=== PATIENT | female | born 1965 | race African-American/Black ===

== ENCOUNTER 2020-12-21 12:04 | Inpatient (IN) ==
[2020-12-21] MEDS ORDERED: *HR* LORazepam 1 MG TABLET PO ONE (13:27)
[2020-12-21] MEDS ORDERED: *HR* LORazepam 2 MG/ML VIAL IM PRN (14:49)
[2020-12-21] MEDS ORDERED: MOM Conc 10 ML UD.LIQ PO PRN (14:49)
[2020-12-21] MEDS ORDERED: Mag Hydrox/Al Hydrox/Simeth 30 ML UDC PO PRN (14:49)
[2020-12-21] MEDS ORDERED: traZODone 50 MG TABLET PO PRN (14:49)
[2020-12-21] MEDS ORDERED: *HR* LORazepam 1 MG TABLET PO PRN (14:49)
[2020-12-21] MEDS ORDERED: Haloperidol Lactate 5 MG/ML VIAL IM PRN (14:49)
[2020-12-21] MEDS ORDERED: Albuterol 2.5 MG/3 ML NEBULIZER IH PRN (14:53)
[2020-12-21] MEDS: haloperidoL 5 MG TABLET PO PRN (15:24)
[2020-12-21] MEDS: cloNIDine HCL 0.1 MG TABLET PO SCH (20:46)
[2020-12-21] MEDS: hydrOXYzine pamoate 25 MG CAPSULE PO PRN (20:46)
[2020-12-22] MEDS: hydrOXYzine pamoate 25 MG CAPSULE PO PRN (03:34)
[2020-12-22] MEDS ORDERED: *HR* LORazepam 1 MG TABLET PO ONE (04:42)
[2020-12-22] MEDS: Loratadine 10 MG TABLET PO SCH (09:00)
[2020-12-22] MEDS: hydroCHLOROthiazide 25 MG TABLET PO SCH (09:01)
[2020-12-22] MEDS: Famotidine 20 MG TABLET PO SCH (09:04)
[2020-12-22] MEDS: Fluticasone Propionate Nasal 50 MCG/SPRAY BOTTLE NS SCH (11:15)
[2020-12-22] MEDS: Tiotropium 10 INH DOSE IH SCH (15:09)
[2020-12-22] MEDS: Budesonide/Formoterol 80/4.5 1 PUFF INH IH SCH ×2 (15:14→21:14)
[2020-12-22] MEDS: haloperidoL 5 MG TABLET PO PRN (18:56)
[2020-12-22] MEDS: cloNIDine HCL 0.1 MG TABLET PO SCH (20:30)
[2020-12-22] MEDS: risperiDONE 0.25 MG TABLET PO SCH (20:31)
[2020-12-23] MEDS: Fluticasone Propionate Nasal 50 MCG/SPRAY BOTTLE NS SCH (08:53)
[2020-12-23] MEDS: hydroCHLOROthiazide 25 MG TABLET PO SCH (08:54)
[2020-12-23] MEDS: risperiDONE 0.25 MG TABLET PO SCH (08:55)
[2020-12-23] MEDS: Famotidine 20 MG TABLET PO SCH (08:57)
[2020-12-23] MEDS: Loratadine 10 MG TABLET PO SCH (08:58)
[2020-12-23] MEDS: Tiotropium 10 INH DOSE IH SCH (09:00)
[2020-12-23] MEDS: Budesonide/Formoterol 80/4.5 1 PUFF INH IH SCH ×2 (09:01→22:15)
[2020-12-23] MEDS: risperiDONE 1 MG TABLET PO SCH ×2 (09:04→20:52)
[2020-12-23] MEDS: cloNIDine HCL 0.1 MG TABLET PO SCH (20:51)
[2020-12-24] MEDS: hydroCHLOROthiazide 25 MG TABLET PO SCH (08:52)
[2020-12-24] MEDS: Loratadine 10 MG TABLET PO SCH (08:52)
[2020-12-24] MEDS: Famotidine 20 MG TABLET PO SCH (08:52)
[2020-12-24] MEDS: risperiDONE 1 MG TABLET PO SCH ×2 (08:52→20:38)
[2020-12-24] MEDS: Fluticasone Propionate Nasal 50 MCG/SPRAY BOTTLE NS SCH (08:53)
[2020-12-24] MEDS: Tiotropium 10 INH DOSE IH SCH (08:54)
[2020-12-24] MEDS: Budesonide/Formoterol 80/4.5 1 PUFF INH IH SCH ×2 (08:55→20:38)
[2020-12-24] MEDS: cloNIDine HCL 0.1 MG TABLET PO SCH (20:38)
[2020-12-25] MEDS: hydroCHLOROthiazide 25 MG TABLET PO SCH (08:22)
[2020-12-25] MEDS: Famotidine 20 MG TABLET PO SCH (08:22)
[2020-12-25] MEDS: Loratadine 10 MG TABLET PO SCH (08:23)
[2020-12-25] MEDS: risperiDONE 1 MG TABLET PO SCH (08:23)
[2020-12-25] MEDS: Fluticasone Propionate Nasal 50 MCG/SPRAY BOTTLE NS SCH (08:25)
[2020-12-25] MEDS ORDERED: Ergocalciferol (VIT D2) 50,000 UNIT (1.25MG) CAP PO SCH (09:00)
[2020-12-25 09:03] VITALS: BP 136/87
[2020-12-25] MEDS: Budesonide/Formoterol 80/4.5 1 PUFF INH IH SCH (09:58)
[2020-12-25] MEDS: Tiotropium 10 INH DOSE IH SCH (09:58)
== END 2020-12-25 13:15 | disposition home or self-care (01) | DRG 751 ==
LOC: EMEROOARM 12:04 → 1ANU 14:45
PROVIDERS: ADMIT Psychiatry & Neurology Psychiatry; ATTEND Psychiatry & Neurology Psychiatry